=== PATIENT | female | born 1980 | race Caucasian/White ===

== ENCOUNTER 2017-01-29 17:55 | Emergency (ER) | payer MEDICAID ==
[2017-01-29 18:00] VITALS: BP 144/89
== END 2017-01-29 18:30 | disposition left against medical advice (07) ==
LOC: ER 17:55
DX: Z53.21 Procedure and treatment not carried out due to patient leaving prior to being seen by health care provider (principal)

== ENCOUNTER 2017-06-28 15:04 | Emergency (ER) | payer MEDICAID ==
--- NOTE | 2017-06-28 15:49 | ER Document Report ---
ED Medical Screen (RME) - General Chief Complaint: Swallowed Foreign Body Stated Complaint: SWALLOWED FOREIGN BODY Time Seen by Provider: 06/28/17 15:48 Notes: Patient believes she has a piece of steak possibly stuck in her esophagus. She saw a GI physician today. He referred her to the emergency department for endoscopy. TRAVEL OUTSIDE OF THE [place] IN LAST 30 DAYS: No - Related Data Allergies/Adverse Reactions: lidocaine [Lidocaine] Allergy (Verified 01/29/17 17:59) Past Medical History - Social History Chew tobacco use (# tins/day): No Frequency of alcohol use: None Drug Abuse: None - Past Medical History Cardiac Medical History: Reports: Hx Hypercholesterolemia Pulmonary Medical History: Reports: Hx Bronchitis Neurological Medical History: Reports: Hx Migraine, Hx Seizures Renal/ Medical History: Reports: Hx Ovarian Cysts. Denies: Hx Peritoneal Dialysis Musculoskeltal Medical History: Reports Hx Arthritis - RA Psychiatric Medical History: Reports: Hx Attention Deficit Hyperactivity Disorder Infectious Medical History: Past Surgical History: Reports: Hx Section - x2, Hx Tubal Ligation - Immunizations Immunizations up to date: Yes Hx Diphtheria, Pertussis, Tetanus Vaccination: Yes - 2008 Physical Exam - Vital signs Vitals: Temp Pulse Resp BP Pulse Ox 98.4 F 91 16 124/87 H 99 06/28/17 15:09 06/28/17 15:09 06/28/17 15:09 06/28/17 15:09 06/28/17 15:09 Course - Vital Signs Vital signs: Temp Pulse Resp BP Pulse Ox 98.4 F 91 16 124/87 H 99 06/28/17 15:09 06/28/17 15:09 06/28/17 15:09 06/28/17 15:09 06/28/17 15:09
[2017-06-28 17:14] LABS: ABSOLUTE BASOPHILS # (AUTO) 0.1 10^3/uL (0.0-0.2); ABSOLUTE EOSINOPHILS # (AUTO) 0.1 10^3/uL (0.0-0.6); ABSOLUTE LYMPHOCYTES (AUTO) 3.7 10^3/uL (0.5-4.7); ABSOLUTE MONOCYTES (AUTO) 0.7 10^3/uL (0.1-1.4); ABSOLUTE NEUT (AUTO) 8.8 10^3/uL (1.7-8.2); BASOPHILS % (AUTO) 0.7 % (0-2); EOSINOPHILS % (AUTO) 0.5 % (0-6); HEMATOCRIT 43.8 % (36.0-47.0); HEMOGLOBIN 15.3 g/dL (12.0-15.5); HGB HCT DIFFERENCE 2.1; LYMPHOCYTES % (AUTO) 27.6 % (13-45); MEAN CORPUSCULAR HEMOGLOBIN 31.2 pg (27.0-33.4); MEAN CORPUSCULAR HGB CONC 34.8 g/dL (32.0-36.0); MEAN CORPUSCULAR VOLUME 90 fl (80-97); MONOCYTES % (AUTO) 5.3 % (3-13); RED BLOOD COUNT 4.89 10^6/uL (3.72-5.28); RED CELL DISTRIBUTION WIDTH 13.1 % (11.5-14.0); SEGMENTED NEUTROPHILS % (AUTO) 65.9 % (42-78); WHITE BLOOD COUNT 13.3 10^3/uL (4.0-10.5)
[2017-06-28] MEDS ORDERED: MORPHINE SULFATE 10 MG/ML INJ IV ONE (17:31)
[2017-06-28] MEDS ORDERED: FENTANYL CITRATE INJ/PF 100 MCG/2 ML AMPUL ONE (17:31)
[2017-06-28] MEDS ORDERED: NALOXONE HCL INJ/PF 0.4 MG/1 ML SDV ONE (17:31)
[2017-06-28] MEDS ORDERED: NORMAL SALINE 1000 ML 1,000 ML IV ONE (17:31)
[2017-06-28] MEDS ORDERED: ONDANSETRON HCL INJ/PF 4 MG/2 ML SDV IV ONE (17:31)
[2017-06-28] MEDS ORDERED: EPINEPHRINE INJ 1 MG/10 ML DISP.SYRIN ONE (17:32)
[2017-06-28] MEDS ORDERED: GLUCAGON,HUMAN RECOMB 1 MG INJ ONE (17:32)
[2017-06-28] MEDS ORDERED: FLUMAZENIL INJ 0.5 MG/5 ML VIAL ONE (17:32)
[2017-06-28 17:35] LABS: ALANINE AMINOTRANSFERASE 39 U/L (9-52); ALBUMIN 4.7 g/dL (3.5-5.0); ALKALINE PHOSPHATASE 98 U/L (38-126); ANION GAP 11 (5-19); ASPARTATE AMINO TRANSFERASE 32 U/L (14-36); BILIRUBIN,DIRECT 0.3 mg/dL (0.0-0.4); BILIRUBIN,TOTAL 0.6 mg/dL (0.2-1.3); BLOOD UREA NITROGEN 10 mg/dL (7-20); CALCIUM 10.1 mg/dL (8.4-10.2); CARBON DIOXIDE 29 mmol/L (22-30); CHLORIDE 102 mmol/L (98-107); CREATININE RESULT 0.63 mg/dL (0.52-1.25); GLUCOSE 91 mg/dL (75-110); SODIUM 142.4 mmol/L (137-145); TOTAL PROTEIN 7.9 g/dL (6.3-8.2)
--- NOTE | 2017-06-28 18:01 | ER Document Report ---
ED Foreign Body - General Chief Complaint: Swallowed Foreign Body Stated Complaint: SWALLOWED FOREIGN BODY Time Seen by Provider: 06/28/17 15:48 Notes: Patient believes she has a piece of steak possibly stuck in her esophagus. She saw a GI physician today. He referred her to the emergency department for endoscopy. Patient is a 37-year-old female who presents emergency department after urgent referral from Dr. Omalley's office. She states she had steak for dinner yesterday but hasnt been able to tolerate PO all day and admits to vomiting with any PO intake. Admits to a couple episodes of hematemesis. Dr. Omalley coming to the ED for endoscopy PMH: depression and anxiety on zoloft and xanax PRn PCP; Dr. Roque in [place] TRAVEL OUTSIDE OF THE [place] IN LAST 30 DAYS: No - Related Data Allergies/Adverse Reactions: lidocaine [Lidocaine] Allergy (Verified 01/29/17 17:59) Past Medical History - Social History Smoking Status: Current Every Day Smoker Chew tobacco use (# tins/day): No Frequency of alcohol use: None Drug Abuse: None Family History: Reviewed & Not Pertinent Patient has suicidal ideation: No Patient has homicidal ideation: No - Past Medical History Cardiac Medical History: Reports: Hx Hypercholesterolemia Pulmonary Medical History: Reports: Hx Bronchitis Neurological Medical History: Reports: Hx Migraine, Hx Seizures Renal/ Medical History: Reports: Hx Ovarian Cysts. Denies: Hx Peritoneal Dialysis Musculoskeltal Medical History: Reports Hx Arthritis - RA Psychiatric Medical History: Reports: Hx Attention Deficit Hyperactivity Disorder Infectious Medical History: Past Surgical History: Reports: Hx Section - x2, Hx Tubal Ligation - Immunizations Immunizations up to date: Yes Hx Diphtheria, Pertussis, Tetanus Vaccination: Yes - 2008 Physical Exam - Vital signs Vitals: Temp Pulse Resp BP Pulse Ox 98.4 F 91 16 124/87 H 99 06/28/17 15:09 06/28/17 15:09 06/28/17 15:09 06/28/17 15:09 06/28/17 15:09 - Notes Notes: PHYSICAL EXAM GENERAL: Alert, interacts well. ENT: Oral mucosa moist, tongue midline. Constantly trying to clear her throat, airway patent NECK: Full range of motion. Supple. Trachea midline. LUNGS: Clear to auscultation bilaterally, no wheezes, rales, or rhonchi. No respiratory distress. HEART: Regular rate and rhythm. No murmurs, gallops, or rubs. ABDOMEN: Soft, nondistended, nontender. No guarding, rebound, or rigidity.. Bowel sounds present in all 4 quadrants. NEUROLOGICAL: Alert and oriented x4. Normal speech. PSYCH: Normal affect, normal mood. Course - Re-evaluation Re-evalutation: 06/28/17 19:29 Patient is a 37-year-old female who is hemodynamically stable, no acute distress and afebrile. Dr. Omalley came and performed EGD at the bedside and was able to remove fluid bolus. Did note that there is an esophageal stricture above the GE junction. Patient to be placed on a liquid diet, omeprazole and follow-up as an outpatient. Will discharge patient home with minimal pain medication and instructions to follow-up with primary care. Otherwise patient is tolerating p.o. and stable for discharge home after protocol for conscious sedation is cleared. - Vital Signs Vital signs: Temp Pulse Resp BP Pulse Ox 98.4 F 91 16 124/87 H 99 06/28/17 15:09 06/28/17 15:09 06/28/17 15:09 06/28/17 15:09 06/28/17 15:09 - Laboratory Result Diagrams: 06/28/17 16:50 06/28/17 16:50 Laboratory results interpreted by me: 06/28/17 16:50 WBC 13.3 H Absolute Neutrophils 8.8 H Discharge - Discharge Clinical Impression: Esophageal stricture Food impaction of esophagus Qualifiers: Encounter type: initial encounter Qualified Code(s): T18.128A - Food in esophagus causing other injury, initial encounter Condition: Good Disposition: HOME, SELF-CARE Instructions: Esophageal Food Impaction ([facility]) Additional Instructions: Please take the omeprazole to decrease gastric acid production to allow your esophageal injury to heal Please follow up with Dr. Omalley's office as an outpatient For tonight, please follow a liquid diet (anything you can spill our of a cup, a milk shake must been thin!) Tomorrow, you can try soft foods (anything you can smoosh with a fork). I would start with small frequent meals. Prescriptions: Omeprazole 20 mg PO BID 30 Days tablet. Sucralfate [Carafate 1 gm Tablet] 1 gm PO BID 30 Days tablet Tramadol HCl 50 mg PO BID #10 tablet Referrals: JUAN OMALLEY MD [ACTIVE STAFF] - Follow up in 1 week
[2017-06-28] MEDS: MIDAZOLAM 2 MG/2 ML INJ ONE ×3 (18:59→19:08)
--- NOTE | 2017-06-28 19:26 | PDOC CONSULTATION ---
Consultation Consult Date: 06/28/17 History of Present Illness History of Present Illness: TEDDY NICHOLAS is a 37 year old female who was seen at the emergency room with dysphagia. She has not been able to swallow liquids or solids since last night. She had a few episodes of vomiting during the night some of which contain blood. She also has significant chest pain especially when she tries to swallow. She has a chronic history of recurrent dysphagia but has never been as bad as it is now. She has heartburn off and on with occasional regurgitation. I saw her in the office earlier on today and referred her to the emergency room. Past Medical History Cardiac Medical History: Reports: Hyperlipidema Pulmonary Medical History: Reports: Bronchitis Neurological Medical History: Reports: Migraine, Seizures Musculoskeltal Medical History: Reports: Arthritis - RA Psychiatric Medical History: Reports: Attention Deficit Hyperactivity Disorder Infectious Medical History: Past Surgical History Past Surgical History: Reports: Section - x2, Tubal Ligation Social History Smoking Status: Current Every Day Smoker Family History Family History: Reviewed & Not Pertinent Parental Family History Reviewed: No Children Family History Reviewed: NA Sibling(s) Family History Reviewed.: NA Medication/Allergy Home Medications: Tramadol HCl 50 mg PO Q6HP PRN #6 tablet 02/17/15 Ibuprofen 800 mg PO TIDP #30 tablet 06/15/15 Methocarbamol [Robaxin 750 mg Tablet] 750 mg PO ASDIR PRN #40 tablet 06/15/15 Cyclobenzaprine HCl [Flexeril 10 mg Tablet] 10 mg PO TIDP PRN #20 tab 08/11/15 Prednisone 20 mg PO DAILY #15 tablet 08/11/15 Tramadol HCl 50 mg PO ASDIR PRN #30 tablet 08/11/15 Methocarbamol [Robaxin 750 mg Tablet] 750 mg PO QID #40 tablet 08/22/15 Nitrofurantoin Monohyd/M-Cryst [Macrobid 100 mg Capsule] 100 mg PO BID #10 capsule 02/29/16 Phenazopyridine HCl [Pyridium 200 mg Tablet] 200 mg PO TID PRN #15 tablet Tramadol HCl 50 mg PO TID #15 tablet 02/29/16 Allergies/Adverse Reactions: lidocaine [Lidocaine] Allergy (Verified 01/29/17 17:59) Review of Systems All systems: reviewed and no additional remarkable complaints except as stated Physical Exam Vital Signs: Temp Pulse Resp BP Pulse Ox 98.4 F 91 16 124/87 H 99 06/28/17 15:09 06/28/17 15:09 06/28/17 15:09 06/28/17 15:09 06/28/17 15:09 Intake & Output 06/27/17 06/28/17 06/29/17 06:59 06:59 06:59 Weight 75.5 kg Exam: General: Patient is alert and looks well. HEENT: There is no pallor or jaundice. PERRLA. Oropharynx normal Respiratory: No chest deformity. No respiratory distress. Chest wall palpitation was unremarkable. Breath sounds were normal Cardiovascular: Heart sounds 1 and 2 normal with no murmurs. Abdominal: Not distended. Soft and nontender. Liver and spleen not palpable. No ascites demonstrated. Bowel sounds active. Rectal examination was deferred. Extremities: No edema Neurological: Alert and oriented x4. Grossly nonfocal. Normal speech Skin: No significant rash Psychological: Normal affect Results Laboratory Results: 06/28/17 16:50 06/28/17 16:50 06/28/17 06/28/17 16:50 16:50 WBC 13.3 H RBC 4.89 Hgb 15.3 Hct 43.8 MCV 90 MCH 31.2 MCHC 34.8 RDW 13.1 Plt Count 311 Seg Neutrophils % 65.9 Lymphocytes % 27.6 Monocytes % 5.3 Eosinophils % 0.5 Basophils % 0.7 Absolute Neutrophils 8.8 H Absolute Lymphocytes 3.7 Absolute Monocytes 0.7 Absolute Eosinophils 0.1 Absolute Basophils 0.1 Sodium 142.4 Potassium 4.0 Chloride 102 Carbon Dioxide 29 Anion Gap 11 BUN 10 Creatinine 0.63 Est GFR ( Amer) > 60 Est GFR (Non-Af Amer) > 60 Glucose 91 Calcium 10.1 Total Bilirubin 0.6 AST 32 ALT 39 Alkaline Phosphatase 98 Total Protein 7.9 Albumin 4.7 Assessment & Plan - Diagnosis (1) Dysphagia Is this a current diagnosis for this admission?: Yes Plan: She likely has foreign body in her esophagus. She will undergo emergent EGD with foreign body removal. She will likely need EGD with dilation later on. (2) Esophageal foreign body Is this a current diagnosis for this admission?: Yes
[2017-06-28] MEDS ORDERED: LIDOCAINE 2% VISCOUS SOLN 20 ML UDCUP PO ONE (19:28)
--- NOTE | 2017-06-28 19:29 | Operative Report ---
Operative Report DATE OF SURGERY: 06/28/17 Operative Report: Pre-op diagnosis: Sudden onset dysphagia Post-op diagnosis: 1. Distal esophageal foreign body 2. GE junction stricture 3. Grade C esophagitis 4. Hiatal hernia Surgery: Esophagogastroduodenoscopy with foreign body removal Medications: Versed 6mg Fentanyl 100mcg IV push Tissue removed: None Procedure: After informed consent obtained from patient, the throat was sprayed with Hurricane and conscious sedation was achieved. The upper endoscope was inserted into the esophagus under direct vision and advanced into the stomach. The duodenum was entered and examined to the second part. Endoscope was then slowly pulled out of the patient as the mucosa was examined into details. Patient tolerated procedure well. Findings Esophagus: She had a large foreign body lodged at the GE junction. This was removed piecemeal using the Nix retrieval basket and the rest of the foreign body was pushed into the stomach. There was a long ulceration involving about 50% the Z line with a stricture. There was a 2-3 cm hiatal hernia just below this. Antrum: Normal Body: Normal Fundus: Normal Duodenum first part: Normal Duodenum second part: Normal Plan: We will start her on omeprazole 20 mg twice a day with as needed Carafate. She will need a repeat EGD with dilation in 4-6 weeks. OPERATION: .
[2017-06-28] MEDS ORDERED: TRAMADOL HCL 50 MG TABLET PO ONE (19:49)
[2017-06-28 20:05] VITALS: BP 107/91
== END 2017-06-28 20:04 | disposition home or self-care (01) ==
LOC: ER 15:04
DX: T18.128A Food in esophagus causing other injury, initial encounter (principal); X58.XXXA Exposure to other specified factors, initial encounter; K92.0 Hematemesis; F32.9 Major depressive disorder, single episode, unspecified; F41.9 Anxiety disorder, unspecified; F17.200 Nicotine dependence, unspecified, uncomplicated; Z88.4 Allergy status to anesthetic agent
CPT/HCPCS: 99283; 96361; 96374; 96375; 43247; 36415; 85025; 80053; J2250; J3010; J3490; J2270; J2405; J7030; J0171; J1610; J2310

== ENCOUNTER → 2018-02-10 | Outpatient (CLI) | payer MEDICAID | LOC: WI 14:04 | PROVIDERS: ATTEND Internal Medicine Geriatric Medicine | DX: N64.4 Mastodynia (principal); Z53.8 Procedure and treatment not carried out for other reasons ==